=== PATIENT | male | born 1955 | race Hispanic/Latino ===

== ENCOUNTER 2020-12-21 15:55 | Emergency (ER) | payer SELFPAY ==
[~2020-12-21] VITALS: Ht 167.6 cm; Wt 102.1 kg
[2020-12-21 15:57] VITALS: BP 117/77
== END 2020-12-21 16:23 | disposition left against medical advice (07) ==
LOC: EDH 15:55
DX: R10.2 Pelvic and perineal pain (principal); Z53.21 Procedure and treatment not carried out due to patient leaving prior to being seen by health care provider